=== PATIENT | male | born 1960 | race Caucasian/White ===

== ENCOUNTER 2021-01-11 11:32 | Outpatient (CLI) | payer OTHER ==
[2021-01-11 11:55] LABS: INR-International Normal Ratio 3.1; Prothrombin Time 32.8 sec (12.0-14.7)
== END 2021-01-11 11:33 | disposition home or self-care (01) ==
LOC: BURLAB 11:32
PROVIDERS: ATTEND Family Medicine
DX: I38 Endocarditis, valve unspecified (principal)
CPT/HCPCS: 36415; 85610

== ENCOUNTER 2022-02-01 12:09 | Outpatient (CLI) | payer OTHER ==
[2022-02-01 13:37] LABS: INR-International Normal Ratio 2.3; Prothrombin Time 25.6 sec (12.0-14.7)
== END 2022-02-01 12:10 | disposition home or self-care (01) ==
LOC: BURLAB 12:09
PROVIDERS: ATTEND Family Medicine
DX: I38 Endocarditis, valve unspecified (principal)
CPT/HCPCS: 36415; 85610